=== PATIENT | female | born 1965 | race Caucasian/White ===

== ENCOUNTER → 2016-08-15 | Outpatient (CLI) | payer BC ==
--- NOTE | 2016-08-15 13:34 | REPMRS ---
Patient History The patient states she has not had a clinical breast exam in over a year. No known family history of cancer. Digital Woman Screen Mammo: August 15, 2016 - Exam #: [id number] Bilateral CC and MLO view(s) were taken. Technologist: Vesna Melissa Technologist Prior study comparison: April 12, 2015, digital woman screen mammo performed at [facility]. FINDINGS: There are scattered fibroglandular densities. There has been no change in the appearance of the mammogram from the prior studies. There is a mild amount of residual fibroglandular tissue which is fairly symmetric. There is no interval development of dominant mass, architectural distortion, or clustered microcalcification suggestive of malignancy. ASSESSMENT: BI-RADS/ACR category 1 mammogram. Negative. Recommendation Routine screening mammogram in 1 year (for women over age 40). This mammogram was interpreted with the aid of an FDA-approved computer-aided dectection system. Electronically Signed By: Guillaume Callejas MD 08/15/16 3435
== END ==
LOC: M WHC 12:59
PROVIDERS: ATTEND Nurse Practitioner Family
DX: Z12.39 Encounter for other screening for malignant neoplasm of breast (principal)

== ENCOUNTER → 2016-08-25 | Outpatient (CLI) | payer BC ==
[2016-08-25 11:14] LABS: ALBUMIN 3.9 GM/DL (3.2-5.2); ALBUMIN/GLOBULIN RATIO 1.34 (1.00-1.93); ALKALINE PHOSPHATASE 69 U/L (45-117); ALT/SGPT 25 U/L (12-78); ANION GAP 5 MEQ/L (8-16); AST/SGOT 16 U/L (15-37); BILIRUBIN,TOTAL 0.4 MG/DL (0.2-1.0); BLOOD UREA NITROGEN 11 MG/DL (7-18); CARBON DIOXIDE LEVEL 34 MEQ/L (21-32); CHLORIDE LEVEL 104 MEQ/L (98-107); CREATININE FOR GFR 0.65 MG/DL (0.55-1.02); FREE T4 1.23 NG/DL (0.76-1.46); GLOMERULAR FILTRATION RATE > 60.0 (>51); GLUCOSE, FASTING 109 MG/DL (70-105); POTASSIUM SERUM 3.8 MEQ/L (3.5-5.1); SODIUM LEVEL 143 MEQ/L (136-145); TOTAL PROTEIN 6.8 GM/DL (6.4-8.2)
== END ==
LOC: M LAB 10:05
PROVIDERS: ATTEND Nurse Practitioner Family
DX: I10 Essential (primary) hypertension (principal); R73.01 Impaired fasting glucose; E05.10 Thyrotoxicosis with toxic single thyroid nodule without thyrotoxic crisis or storm

== ENCOUNTER → 2017-03-04 | Outpatient (CLI) | payer BC ==
[2017-03-04 12:35] LABS: ALBUMIN 3.6 GM/DL (3.2-5.2); ALBUMIN/GLOBULIN RATIO 1.16 (1.00-1.93); ALKALINE PHOSPHATASE 66 U/L (45-117); ALT/SGPT 27 U/L (12-78); ANION GAP 9 MEQ/L (8-16); AST/SGOT 14 U/L (15-37); BILIRUBIN,TOTAL 0.4 MG/DL (0.2-1.0); BLOOD UREA NITROGEN 11 MG/DL (7-18); CARBON DIOXIDE LEVEL 31 MEQ/L (21-32); CHLORIDE LEVEL 104 MEQ/L (98-107); CHOLESTEROL LEVEL 193 MG/DL (<200); CREATININE FOR GFR 0.52 MG/DL (0.55-1.02); FREE T4 1.18 NG/DL (0.76-1.46); GLOMERULAR FILTRATION RATE > 60.0 (>51); GLUCOSE, FASTING 100 MG/DL (70-105); POTASSIUM SERUM 3.9 MEQ/L (3.5-5.1); SODIUM LEVEL 144 MEQ/L (136-145); TOTAL PROTEIN 6.7 GM/DL (6.4-8.2); TRIGLYCERIDES LEVEL 73 MG/DL (<150)
== END ==
LOC: M LAB 10:27
PROVIDERS: ATTEND Nurse Practitioner Family
DX: E05.10 Thyrotoxicosis with toxic single thyroid nodule without thyrotoxic crisis or storm (principal)

== ENCOUNTER → 2017-09-02 | Outpatient (CLI) | payer BC ==
[2017-09-02 07:21] LABS: ESTIMATED AVERAGE GLUCOSE 123 MG/DL (60-110); HEMOGLOBIN A1c 5.9 %
[2017-09-02 07:35] LABS: ALBUMIN 3.7 GM/DL (3.2-5.2); ALBUMIN/GLOBULIN RATIO 1.28 (1.00-1.93); ALKALINE PHOSPHATASE 70 U/L (45-117); ALT/SGPT 29 U/L (12-78); ANION GAP 5 MEQ/L (8-16); AST/SGOT 13 U/L (7-37); BILIRUBIN,TOTAL 0.4 MG/DL (0.2-1.0); BLOOD UREA NITROGEN 14 MG/DL (7-18); CALCIUM LEVEL 8.7 MG/DL (8.5-10.1); CARBON DIOXIDE LEVEL 33 MEQ/L (21-32); CHLORIDE LEVEL 104 MEQ/L (98-107); CREATININE FOR GFR 0.64 MG/DL (0.55-1.30); FREE T3 3.1 PG/ML (2.2-4.0); FREE T4 1.14 NG/DL (0.76-1.46); GLOMERULAR FILTRATION RATE > 60.0 (>51); GLUCOSE, FASTING 112 MG/DL (70-100); POTASSIUM SERUM 3.9 MEQ/L (3.5-5.1); SODIUM LEVEL 142 MEQ/L (136-145); THYROID STIMULATING HORMONE 0.766 uIU/ML (0.358-3.740); TOTAL PROTEIN 6.6 GM/DL (6.4-8.2)
== END ==
LOC: M LAB 06:35
DX: R73.01 Impaired fasting glucose (principal)

== ENCOUNTER 2018-03-09 06:09 | Day surgery (SDC) | payer BC ==
[2018-03-09 06:37] LABS: HEMATOCRIT 41.7 % (36.0-47.0); HEMOGLOBIN 14.7 g/dl (12.0-15.5); MEAN CORPUSCULAR HEMOGLOBIN 32.2 pg (27.0-33.0); MEAN CORPUSCULAR HGB CONC 35.3 g/dl (32.0-36.5); MEAN CORPUSCULAR VOLUME 91.4 fl (80.0-96.0); PLATELET COUNT, AUTOMATED 248 10^3/uL (150-450); RED BLOOD COUNT 4.56 10^6/uL (4.00-5.40); RED CELL DISTRIBUTION WIDTH 11.9 % (11.5-14.5); WHITE BLOOD COUNT 8.8 10^3/uL (4.0-10.0)
[2018-03-09] MEDS: LR 1,000 ML IV ×4 (07:08→20:04)
[2018-03-09] MEDS: PHENAZOPYRIDINE 100 MG TAB PO (07:39)
[2018-03-09] MEDS ORDERED: fentaNYL 250 MCG/5 ML INJECTION (J3010) As Ordered (07:59)
[2018-03-09] MEDS ORDERED: PROPOFOL 200 MG/20 ML VIAL As Ordered (07:59)
[2018-03-09] MEDS ORDERED: MIDAZOLAM INJ 2 MG/2 ML VIAL (J2250) As Ordered (07:59)
[2018-03-09] MEDS ORDERED: dexameTHASONE 4 MG/ML 1ML VIAL (J1100) As Ordered (07:59)
[2018-03-09] MEDS ORDERED: LIDOCAINE 2% INJ 100 MG/5 ML SDV (FOR ANES.) As Ordered (07:59)
[2018-03-09] MEDS ORDERED: ROCURONIUM BROMIDE 50 MG/5 ML VIAL As Ordered ×2 (07:59→09:26)
[2018-03-09] MEDS ORDERED: LR 1,000 ML IV (08:00)
[2018-03-09] MEDS ORDERED: PHENYLephrine HCL 500 MCG/5 ML (100MCG/ML) SYRINGE (J2370) As Ordered ×2 (08:06→10:02)
[2018-03-09] MEDS ORDERED: GLYCOPYRROLATE INJ 0.2 MG/ML 2 ML VIAL As Ordered (08:23)
[2018-03-09] MEDS ORDERED: LISINOPRIL 10 MG TAB PO (09:00)
[2018-03-09] MEDS ORDERED: buPROPion 75 MG TAB PO (09:00)
[2018-03-09] MEDS ORDERED: buPROPion **XL** TABLET 150MG (WELLBUTRIN XL) PO (09:00)
[2018-03-09] MEDS: hydroCHLOROthiazide 25 MG TAB PO (09:00)
[2018-03-09] MEDS ORDERED: HYDROmorphone HCL 2 MG/ML 1ML VIAL (J1170) As Ordered (09:03)
[2018-03-09] MEDS ORDERED: ONDANSETRON 4MG/2ML VIAL (J2405) As Ordered (09:05)
[2018-03-09] MEDS ORDERED: KETOROLAC 60 MG/2 ML VIAL (J1885) As Ordered (09:05)
[2018-03-09] MEDS ORDERED: NEOSTIGMINE 10 MG/10 ML VIAL (J2710) As Ordered (09:05)
[2018-03-09] MEDS: VASOPRESSIN INJ 20 UNITS/ML VIAL As Ordered (09:09)
[2018-03-09] MEDS ORDERED: MORPHINE 1MG/ML IN 0.9% NACL 100ML IV BAG As Ordered (11:13)
[2018-03-09] MEDS ORDERED: PERCOCET 5MG/325MG TAB PO (11:15)
[2018-03-09] MEDS ORDERED: fentaNYL 100 MCG/2 ML INJECTION (J3010) IV (11:15)
[2018-03-09] MEDS ORDERED: ONDANSETRON 4MG/2ML VIAL (J2405) IV (11:15)
[2018-03-09] MEDS ORDERED: IBUPROFEN 600 MG TAB PO (11:15)
[2018-03-09] MEDS ORDERED: HYDROMORPHONE HCL 0.5 MG/ 0.5 ML SYRINGE (J1170 PER 1) IV (11:15)
[2018-03-09] MEDS: MORPHINE 1MG/ML IN 0.9% NACL 100ML IV BAG IV (11:20)
[2018-03-09] MEDS ORDERED: diphenhydrAMINE INJ 50MG/ML VIAL (J1200) IV (11:30)
[2018-03-09] MEDS ORDERED: NALBUPHINE HCL 10 MG/ML AMP (J2300) IV (11:30)
[2018-03-09] MEDS ORDERED: EPIDURAL/PCA KEYS XX (11:30)
[2018-03-09] MEDS ORDERED: NALOXONE INJ 0.4 MG/1 ML VIAL (J2310) IV (11:30)
[2018-03-09] MEDS: OMEPRAZOLE 20 MG CAP PO (15:56)
[2018-03-09] MEDS: IBUPROFEN 600 MG TAB PO (16:26)
[2018-03-09] MEDS: LISINOPRIL 20 MG TAB PO (20:13)
[2018-03-09] MEDS: buPROPion **SR TABLET** (ZYBAN) 150MG PO (20:14)
[2018-03-10] MEDS: IBUPROFEN 600 MG TAB PO ×2 (00:13→06:28)
[2018-03-10] MEDS ORDERED: NORCO, ANEXSIA 5/325MG TABLET (HYDROcodone/ACETAMINOPHEN) PO (06:00)
[2018-03-10 08:22] LABS: HEMATOCRIT 33.2 % (36.0-47.0); MEAN CORPUSCULAR HGB CONC 35.5 g/dl (32.0-36.5); MEAN CORPUSCULAR VOLUME 92.7 fl (80.0-96.0); PLATELET COUNT, AUTOMATED 206 10^3/uL (150-450); RED BLOOD COUNT 3.58 10^6/uL (4.00-5.40); RED CELL DISTRIBUTION WIDTH 11.9 % (11.5-14.5)
[2018-03-10 08:24] LABS: HEMOGLOBIN 11.8 g/dl (12.0-15.5)
[2018-03-10] MEDS: OMEPRAZOLE 20 MG CAP PO (09:31)
[2018-03-10] MEDS: buPROPion **SR TABLET** (ZYBAN) 150MG PO (09:31)
[2018-03-10] MEDS: hydroCHLOROthiazide 25 MG TAB PO (09:31)
== END 2018-03-10 11:05 | disposition home or self-care (01) ==
LOC: M SDC 06:09 → M PED 11:56
DX: N81.4 Uterovaginal prolapse, unspecified (principal); I10 Essential (primary) hypertension; F41.9 Anxiety disorder, unspecified; K21.9 Gastro-esophageal reflux disease without esophagitis; Z79.899 Other long term (current) drug therapy; Z72.0 Tobacco use
CPT/HCPCS: 58571

== ENCOUNTER → 2018-03-16 | Outpatient (REF) | payer BC ==
[2018-03-16 18:56] LABS: APPEARANCE, URINE HAZY (CLEAR); BACTERIA, URINE AUTO NEGATIVE (NEGATIVE); BILIRUBIN, URINE AUTO NEGATIVE (NEGATIVE); BLOOD, URINE BLOOD 3+ (NEGATIVE); COLOR, URINE YELLOW (YELLOW); GLUCOSE, URINE (UA) AUTO NEGATIVE (NEGATIVE); KETONE, URINE AUTO NEGATIVE (NEGATIVE); LEUKOCYTE ESTERASE, URINE AUTO NEGATIVE (NEGATIVE); MUCUS, URINE SMALL (NEGATIVE); NITRITE, URINE AUTO NEGATIVE (NEGATIVE); PROTEIN, URINE AUTO NEGATIVE (NEGATIVE); RBC, URINE AUTO TNTC /HPF (0-3); SPECIFIC GRAVITY URINE AUTO 1.018 (1.002-1.035); SQUAMOUS EPITHELIAL CELL UR AU 1 /HPF (0-6); UROBILINOGEN, URINE AUTO 0.2 mg/dL (0.0-2.0); WBC, URINE AUTO 2 /HPF (0-3)
== END ==
LOC: M LAB REF 16:53
DX: N39.0 Urinary tract infection, site not specified (principal)
CPT/HCPCS: 81001

== ENCOUNTER → 2018-09-10 | Outpatient (CLI) | payer BC ==
[~2018-09-10] MED LIST: BUPR1TAB53 PO; HYDR25TAB PO; IBUP-1022 PO; LISI-538 PO; NORCOTAB PO; PRIL20TA2 PO
[2018-09-10 17:17] LABS: BASO % 0.4 % (0.0-1.0); EOS # 0.1 10^3/uL (0.0-0.50); EOS % 1.8 % (0.0-3.0); HEMATOCRIT 38.8 % (36.0-47.0); HEMOGLOBIN 13.3 g/dl (12.0-15.5); LYMPH # 2.8 10^3/uL (1.5-4.5); LYMPH % 34.9 % (24.0-44.0); MEAN CORPUSCULAR HEMOGLOBIN 31.6 pg (27.0-33.0); MEAN CORPUSCULAR HGB CONC 34.3 g/dl (32.0-36.5); MEAN CORPUSCULAR VOLUME 92.2 fl (80.0-96.0); MONO # 0.6 10^3/uL (0.0-0.8); MONO % 7.8 % (0.0-5.0); NEUTROPHILS # 4.3 10^3/uL (1.8-7.7); NEUTROPHILS % 54.7 % (36.0-66.0); PLATELET COUNT, AUTOMATED 276 10^3/uL (150-450); RED BLOOD COUNT 4.21 10^6/uL (4.00-5.40); WHITE BLOOD COUNT 7.9 10^3/uL (4.0-10.0)
[2018-09-10 17:34] LABS: ALBUMIN 3.9 GM/DL (3.2-5.2); ALT/SGPT 32 U/L (12-78); BILIRUBIN,TOTAL 0.3 MG/DL (0.2-1.0); BLOOD UREA NITROGEN 15 MG/DL (7-18); CALCIUM LEVEL 8.8 MG/DL (8.5-10.1); CARBON DIOXIDE LEVEL 31 MEQ/L (21-32); CHLORIDE LEVEL 101 MEQ/L (98-107); CREATININE FOR GFR 0.57 MG/DL (0.55-1.30); FREE T3 3.2 PG/ML (2.2-4.0); GLOMERULAR FILTRATION RATE > 60.0 (>51); GLUCOSE, FASTING 105 MG/DL (70-100); POTASSIUM SERUM 3.7 MEQ/L (3.5-5.1); SODIUM LEVEL 137 MEQ/L (136-145); THYROID STIMULATING HORMONE 0.404 uIU/ML (0.358-3.740); TOTAL PROTEIN 6.8 GM/DL (6.4-8.2)
[2018-09-10 17:59] LABS: HEMOGLOBIN A1c 6.4 %
== END ==
LOC: M LAB 16:14
PROVIDERS: ATTEND Nurse Practitioner Family
DX: I10 Essential (primary) hypertension (principal); R73.01 Impaired fasting glucose; E05.10 Thyrotoxicosis with toxic single thyroid nodule without thyrotoxic crisis or storm

== ENCOUNTER → 2019-02-18 | Outpatient (CLI) | payer BC ==
[~2019-02-18] MED LIST changes: +HYDR-3715 PO; -NORCOTAB PO
--- NOTE | 2019-02-18 12:42 | REPMRS ---
Patient History The patient states she has not had a clinical breast exam in over a year. Patient is postmenopausal. No Hormone Replacement Therapy Digital Woman Screen Mammo: February 18, 2019 - Exam #: [id number] Bilateral CC and MLO view(s) were taken. Technologist: Rossi Bell, Technologist Prior study comparison: August 15, 2016, digital woman screen mammo performed at [facility]. April 12, 2015, digital woman screen mammo performed at [facility] [employer] [facility]. FINDINGS: There are scattered fibroglandular densities. There has been no change in the appearance of the mammogram from the prior studies. There is a mild amount of scattered fibroglandular density which is fairly symmetric. There is no interval development of dominant mass, architectural distortion, or grouped microcalcification suggestive of malignancy. 3-D tomosynthesis shows no additional findings. Assessment: BI-RADS/ACR category 1 mammogram. Negative Mammogram. Recommendation Routine screening mammogram of both breasts in 1 year (for women over age 40). This patient's Lifetime Breast Cancer Risk is estimated at 7.4 %. This mammogram was interpreted with the aid of an FDA-approved computer-aided dectection system. Electronically Signed By: Alfredo Patel MD 02/18/19 2270
== END ==
LOC: M WHC 11:58
PROVIDERS: ATTEND Nurse Practitioner Family
DX: Z12.31 Encounter for screening mammogram for malignant neoplasm of breast (principal); Z78.0 Asymptomatic menopausal state

== ENCOUNTER → 2019-05-06 | Outpatient (CLI) | payer BC ==
[2019-05-06 07:13] LABS: BASO % 0.5 % (0.0-1.0); EOS # 0.2 10^3/uL (0.0-0.5); EOS % 3.4 % (0.0-3.0); HEMATOCRIT 43.1 % (36.0-47.0); HEMOGLOBIN 14.7 g/dl (12.0-15.5); LYMPH # 1.9 10^3/uL (1.5-5.0); LYMPH % 31.3 % (24.0-44.0); MEAN CORPUSCULAR HEMOGLOBIN 32.2 pg (27.0-33.0); MEAN CORPUSCULAR HGB CONC 34.1 g/dl (32.0-36.5); MEAN CORPUSCULAR VOLUME 94.3 fl (80.0-96.0); MONO # 0.6 10^3/uL (0.0-0.8); MONO % 9.6 % (0.0-5.0); NEUTROPHILS # 3.4 10^3/uL (1.5-8.5); PLATELET COUNT, AUTOMATED 271 10^3/uL (150-450); RED BLOOD COUNT 4.57 10^6/uL (4.00-5.40); WHITE BLOOD COUNT 6.2 10^3/uL (4.0-10.0)
[2019-05-06 08:03] LABS: ALBUMIN 3.6 GM/DL (3.2-5.2); ALT/SGPT 42 U/L (12-78); BILIRUBIN,TOTAL 0.3 MG/DL (0.2-1.0); BLOOD UREA NITROGEN 13 MG/DL (7-18); CALCIUM LEVEL 8.9 MG/DL (8.5-10.1); CARBON DIOXIDE LEVEL 32 MEQ/L (21-32); CHLORIDE LEVEL 104 MEQ/L (98-107); CHOLESTEROL LEVEL 189 MG/DL (<200); CHOLESTEROL RISK RATIO 3.375 (<5); CREATININE FOR GFR 0.74 MG/DL (0.55-1.30); FREE T4 1.18 NG/DL (0.76-1.46); GLOMERULAR FILTRATION RATE > 60.0 (>51); GLUCOSE, FASTING 136 MG/DL (70-100); HDL CHOLESTEROL 56 MG/DL (>40); LDL CHOLESTEROL 120 MG/DL (<100); NON-HDL-C 133 MG/DL; SODIUM LEVEL 141 MEQ/L (136-145); THYROID STIMULATING HORMONE 0.917 uIU/ML (0.358-3.740); TOTAL PROTEIN 6.9 GM/DL (6.4-8.2); TRIGLYCERIDES LEVEL 65 MG/DL (<150)
[2019-05-06 09:29] LABS: TOTAL 25(OH) VITAMIN D 34.7 NG/ML (30.0-100.0)
== END ==
LOC: M LAB 06:49
PROVIDERS: ATTEND Physician Assistant Medical
DX: R53.83 Other fatigue (principal); I10 Essential (primary) hypertension; Z13.220 Encounter for screening for lipoid disorders

== ENCOUNTER → 2019-09-12 | Outpatient (REF) | payer BC ==
[2019-09-12 13:45] LABS: APPEARANCE, URINE HAZY (CLEAR); BACTERIA, URINE AUTO 1+ (NEGATIVE); BILIRUBIN, URINE AUTO NEGATIVE (NEGATIVE); BLOOD, URINE BLOOD NEGATIVE (NEGATIVE); COLOR, URINE YELLOW (YELLOW); GLUCOSE, URINE (UA) AUTO NEGATIVE (NEGATIVE); KETONE, URINE AUTO NEGATIVE (NEGATIVE); LEUKOCYTE ESTERASE, URINE AUTO TRACE (NEGATIVE); MUCUS, URINE SMALL (NEGATIVE); NITRITE, URINE AUTO NEGATIVE (NEGATIVE); PROTEIN, URINE AUTO NEGATIVE (NEGATIVE); RBC, URINE AUTO 3 /HPF (0-3); SPECIFIC GRAVITY URINE AUTO 1.017 (1.002-1.035); SQUAMOUS EPITHELIAL CELL UR AU 4 /HPF (0-6); WBC, URINE AUTO 15 /HPF (0-3)
== END ==
LOC: M LAB REF 13:26
PROVIDERS: ATTEND Physician Assistant
DX: N39.0 Urinary tract infection, site not specified (principal)

== ENCOUNTER → 2020-03-28 | Outpatient (CLI) | payer BC ==
[2020-03-28 06:57] LABS: BASO % 0.4 % (0.0-1.0); EOS # 0.2 10^3/uL (0.0-0.5); EOS % 2.3 % (0.0-3.0); HEMATOCRIT 42.4 % (36.0-47.0); HEMOGLOBIN 14.6 g/dl (12.0-15.5); LYMPH # 2.5 10^3/uL (1.5-5.0); LYMPH % 36.2 % (24.0-44.0); MEAN CORPUSCULAR HEMOGLOBIN 31.8 pg (27.0-33.0); MEAN CORPUSCULAR HGB CONC 34.4 g/dl (32.0-36.5); MEAN CORPUSCULAR VOLUME 92.4 fl (80.0-96.0); MONO # 0.7 10^3/uL (0.0-0.8); MONO % 9.4 % (0.0-5.0); NEUTROPHILS # 3.5 10^3/uL (1.5-8.5); NEUTROPHILS % 51.4 % (36.0-66.0); PLATELET COUNT, AUTOMATED 244 10^3/uL (150-450); RED BLOOD COUNT 4.59 10^6/uL (4.00-5.40); WHITE BLOOD COUNT 6.9 10^3/uL (4.0-10.0)
[2020-03-28 07:14] LABS: HEMOGLOBIN A1c 6.9 %
[2020-03-28 07:36] LABS: ALBUMIN 3.3 GM/DL (3.2-5.2); ALT/SGPT 63 U/L (12-78); BILIRUBIN,TOTAL 0.4 MG/DL (0.2-1.0); BLOOD UREA NITROGEN 17 MG/DL (7-18); CALCIUM LEVEL 8.9 MG/DL (8.5-10.1); CARBON DIOXIDE LEVEL 30 MEQ/L (21-32); CHLORIDE LEVEL 104 MEQ/L (98-107); CHOLESTEROL LEVEL 195 MG/DL (<200); CHOLESTEROL RISK RATIO 4.431 (<5); FREE T4 1.23 NG/DL (0.76-1.46); GLOMERULAR FILTRATION RATE > 60.0 (>51); GLUCOSE, FASTING 172 MG/DL (70-100); HDL CHOLESTEROL 44 MG/DL (>40); LDL CHOLESTEROL 118 MG/DL (<100); NON-HDL-C 151 MG/DL; POTASSIUM SERUM 3.9 MEQ/L (3.5-5.1); SODIUM LEVEL 140 MEQ/L (136-145); TOTAL PROTEIN 6.5 GM/DL (6.4-8.2); TRIGLYCERIDES LEVEL 164 MG/DL (<150)
== END ==
LOC: M LAB 05:59
PROVIDERS: ATTEND Physician Assistant Medical
DX: E78.2 Mixed hyperlipidemia (principal); E11.9 Type 2 diabetes mellitus without complications; I10 Essential (primary) hypertension

== ENCOUNTER → 2020-07-29 | Outpatient (CLI) | payer BC ==
[~2020-07-29] MED LIST changes: +BISO5TAB14
== END ==
LOC: M LABSMTC 08:14
PROVIDERS: ATTEND Anesthesiology
DX: Z01.812 Encounter for preprocedural laboratory examination (principal); Z20.822 Contact with and (suspected) exposure to COVID-19

== ENCOUNTER 2020-08-03 09:57 | Day surgery (SDC) | payer BC ==
[~2020-08-03] VITALS: Ht 170.2 cm; Wt 96.5 kg
[~2020-08-03 09:57] MED LIST changes: +HYDR-3490 PO; -HYDR25TAB PO; -LISI-538 PO; +LISI20TA33 PO; +MIDAZOLAM INJ 2MG/2ML VIAL (J2250 PER 1MG) As Ordered ONE; +OFLOXACIN 0.3 % (OCUFLOX) OPTH SOL 5ML OD ONE; +PHENYLEPHRINE 2.5% OPHTH SOL 2ML OD ONE; +PROPARACAINE 0.5% OPHTH SOL 15ML OD ONE; +TROPICAMIDE 1% OPHTH SOLN 2ML OD ONE; +fentaNYL 100 MCG/2 ML INJECTION (J3010) As Ordered ONE
[2020-08-03] MEDS ORDERED: BSS IRR 500ML/OMIDRIA 4ML IRR BAG (OR ONLY) As Ordered ONE (09:58)
[2020-08-03] MEDS ORDERED: DUOVISC (0.50ML VISCOAT/0.55ML PROVISC) OPHTH KIT As Ordered ONE (10:21)
[2020-08-03] MEDS ORDERED: CEFUROXIME 1MG/0.1ML INTRACAMERAL INJ As Ordered ONE (10:21)
[2020-08-03] MEDS ORDERED: POVIDONE-IODINE 5% OPHTH PREP SOL 30ML As Ordered ONE (10:22)
[2020-08-03 13:00] VITALS: BP 124/63
--- NOTE | 2020-08-04 10:36 | RO ---
OPERATIVE NOTE DATE OF OPERATION: 08/03/2020 PREOPERATIVE DIAGNOSIS: 1. Visually significant nuclear sclerotic cataract, right eye. POSTOPERATIVE DIAGNOSIS: 1. Visually significant nuclear sclerotic cataract, right eye. PROCEDURE: 1. Cataract extraction with use of phacoemulsification, and placement of intraocular lens, AU00T0, 13.5 D, right eye. SURGEON: Ricardo Simmons DO ANESTHESIA: Local (Omidria with MAC) COMPLICATIONS: None POSTOPERATIVE CONDITION: Stable INDICATIONS FOR SURGERY: 1. Blurred vision affecting patient's activities of daily living. DESCRIPTION OF PROCEDURE: The patient was seen in the preoperative area and properly identified. The correct operative eye was identified and marked. The patient received topical anesthetic, antibiotics, and topical dilating drops. The patient was then transferred to the operating room. The correct side was re-identified and a time-out was performed. The eye was prepped and draped in a sterile fashion. The eyelids were isolated with Tegaderm tape and the lids were held open with an adjustable speculum. A 1.0mm paracentesis incision was made. Omidria was then injected into the anterior chamber. Viscoelastic was then injected into the anterior chamber through the paracentesis. Using a 2.4mm sharp-tipped keratome, the anterior chamber was entered via a temporal clear cornea incision. A continuous curvilinear capsulorrhexis was created with Utrata forceps. Hydrodissection was performed with BSS on a blunt cannula until the nucleus was able to rotate freely. The crystalline lens was phacoemulsified and aspirated. Irrigation/aspiration was used to remove the cortical material Cohesive viscoelastic was placed into the capsular bag to deepen it. The implant was placed into the capsular bag and allowed to unfold. Placement was confirmed by visualizing the anterior capsulorrhexis. Irrigation/aspiration was used to remove the viscoelastic. The clear corneal incision was hydrated with BSS on a blunt cannula. The lens was well positioned. Intracameral antibiotic was injected into the anterior chamber. The incisions were then tested for leaks and found to be negative. The eye was then palpated for appropriate pressure and adjusted accordingly with BSS. The eyelid speculum was then carefully removed. A shield was placed over the eye. The patient tolerated the procedure well and was discharge to the recovery unit in a stable condition.
== END 2020-08-03 13:18 | disposition home or self-care (01) ==
LOC: M SDC 09:57
PROVIDERS: ATTEND Ophthalmology
DX: H25.11 Age-related nuclear cataract, right eye (principal); I10 Essential (primary) hypertension; F17.210 Nicotine dependence, cigarettes, uncomplicated; F41.9 Anxiety disorder, unspecified; K21.9 Gastro-esophageal reflux disease without esophagitis; Z79.899 Other long term (current) drug therapy; Z90.710 Acquired absence of both cervix and uterus
CPT/HCPCS: 66984; J1097; J2250; J3010

== ENCOUNTER → 2020-08-05 | Outpatient (CLI) | payer BC ==
[~2020-08-05] MED LIST changes: -MIDAZOLAM INJ 2MG/2ML VIAL (J2250 PER 1MG) As Ordered ONE; -OFLOXACIN 0.3 % (OCUFLOX) OPTH SOL 5ML OD ONE; -PHENYLEPHRINE 2.5% OPHTH SOL 2ML OD ONE; -PROPARACAINE 0.5% OPHTH SOL 15ML OD ONE; -TROPICAMIDE 1% OPHTH SOLN 2ML OD ONE; -fentaNYL 100 MCG/2 ML INJECTION (J3010) As Ordered ONE
== END ==
LOC: M LABSMTC 08:04
PROVIDERS: ATTEND Anesthesiology
DX: Z01.812 Encounter for preprocedural laboratory examination (principal); Z20.822 Contact with and (suspected) exposure to COVID-19

== ENCOUNTER 2020-08-10 07:08 | Day surgery (SDC) | payer BC ==
[~2020-08-10] VITALS: Ht 170.2 cm; Wt 96.2 kg
[~2020-08-10 07:08] MED LIST changes: +DUOVISC (0.50ML VISCOAT/0.55ML PROVISC) OPHTH KIT As Ordered ONE; +OFLOXACIN 0.3 % (OCUFLOX) OPTH SOL 5ML OS ONE; +PHENYLEPHRINE 2.5% OPHTH SOL 2ML OS ONE; +POVIDONE-IODINE 5% OPHTH PREP SOL 30ML As Ordered ONE; +PROPARACAINE 0.5% OPHTH SOL 15ML OS ONE; +TROPICAMIDE 1% OPHTH SOLN 2ML OS ONE
[2020-08-10] MEDS ORDERED: fentaNYL 100 MCG/2 ML INJECTION (J3010) As Ordered ONE (07:14)
[2020-08-10] MEDS ORDERED: MIDAZOLAM INJ 2MG/2ML VIAL (J2250 PER 1MG) As Ordered ONE (07:14)
--- OUTSIDE RECORDS SUMMARY | 2020-08-10 07:15 | CCD ---
Author Author Johny Mobley MD [facility] Organization Johny Mobley MD [facility] Address [phone] [address] Phone Care Team Providers Care Pattern Filer Name Role Phone Basilio Fay PP [phone] Troy GUEVARA, Ricardo Unavailable [phone] Reason for Referral No Reason for Referral Recorded Problems Includes: Active, inactive, and resolved Problems All Visits Onset Date - Time Resolved Date - Time Provider Co ndition Status Cataract Senile Posterior Subcapsular Polar 05/16/2020 - 12:00AM Ricardo Simmons DO Active Cataract Senile Nuclear 05/16/2020 - 12:00AM Ricardo gunn DO Active Dry Eye Syndrome 05/16/2020 - 12:00AM Ricardo hazel DO Active Vitreous Disorders Degeneration 05/16/2020 - 12:00AM Concepcion Simmons DO Active Plan of Treatment Future Appointments Date Time Location Provider POST OP VISIT WITH PRE-OP 08/04/2020 1:10PM Johny hi MD [facility] Ricardo Simmons DO Extracapsular cataract removal w/IOL implant 08/10/2020 9:4 0AM [facility] Ricardo Simmons DO 1 Week Post OP 08/18/2020 1:10PM Johny Mobley MD [facility] Concepcion Simmons DO Assessments Includes: Assessments for all patient encounters Findings Encounter Date Nuclear senile cataract 1 WK PREOP FOR SURGERY with Ricardo Simmons DO 07/26/2020 Posterior subcapsular polar senile cataract 1 WK PREOP FOR SURGERY with Ricardo Simmons DO 07/26/2020 Dry eye syndrome NEW PATIENT WITH REFERRAL with Ricardo gunn DO 05/16/2020 Nuclear senile cataract NEW PATIENT WITH REFERRAL with Mian Simmons DO 05/16/2020 Posterior subcapsular polar senile cataract NEW PATIEN T WITH REFERRAL with Ricardo Simmons DO 05/16/2020 Vitreous degeneration NEW PATIENT WITH REFERRAL with Ricardo Simmons DO 05/16/2020 Instructions Instructions not supported for this document typeNo Instructions Recorded Medical Equipment - Implanted Devices Includes: Current and historical DevicesNo Medical Equipment Recorded Medications Includes: Current and historical Medications Current Medications (continue as prescribed) Moxifloxacin HCl 0.5% Ophthalmic Solution 07/26/2020 Provider: Ricardo Simmons DO Diagnosis: Posterior subcapsula r polar age-related cataract, right eye Three days prior to surgery start one drop four times a day in the right eye BromSite 0.075% Ophthalmic Solution 07/26/2020 Prov ider: Ricardo Simmons DO Diagnosis: Posterior subcapsula r polar age-related cataract, right eye Three days prior to surgery start one dr op two times a day in the right eye, RUN CARD. SEE PHARM NOTES Inveltys 1% Ophthalmic Suspension 07/26/2020 Provid er: Ricardo Simmons DO Diagnosis: Posterior subcapsula r polar age-related cataract, right eye Day of surgery remove patch start one dr op two times a day in the right eye, RUN CARD. SEE PHARM NOTES Lisinopril 20 MG Oral Tablet 05/16/2020 Provider: Diagnosis: buPROPion HCl ER (XL) 150 MG Oral Tablet Extended Release 24 Hour 05/16/2020 Provider: Diagnosis: Bisoprolol Fumarate 5 MG Oral Tablet 05/16/2020 Pro vider: Diagnosis: hydroCHLOROthiazide 25 MG Oral Tablet 05/16/2020 Pr ovider: Diagnosis: Omeprazole 20 MG Oral Tablet Delayed Release 05/16/2020 Provider: Diagnosis: Past Medications on file buPROPion HCl ER (SR) 150 MG Oral Tablet Extended Rele ase 12 Hour 05/16/2020 - 05/16/2020 Provider: Diagnosis: Medications Administered Includes: Administered Medications in patient's chartNo Administered Medications Recorded Vital Signs Includes: Vital Signs from 08/04/2019 through 08/04/2020No Vital Signs Recorded For Specified Dates Results Includes: Results from 08/04/2019 through 08/04/2020No Results Recorded For Specified Dates History of Present Illness History of Present Illness not supported for this document typeNo History of Present Illness Recorded Social History Description Last Updated Not using drugs 07/26/2020 Tobacco use 05/16/2020 Current smoker 05/16/2020 Alcohol consumption 12 pack weekly 05/16/2020 Smoking status : Current everyday smoker 05/16/2020 Procedures and Surgical History Includes: Procedures from 08/04/2019 through 08/04/2020 Procedures Code Diagnosis Performing Provider Service Location Service Date Intermediate Eye Exam Established Patient (Signi/Sep Eval. & Man.) 13413 Posterior subcapsular polar age-related cataract, right eye Ricardo Hennessy MD [facility] 07/26/2020 Ophthalmic biometry - IOL Master with IOL calculation (Right Side) 94243 Posterior subcapsular polar age-related cataract, right eye Ricardo Hennessy MD [facility] 07/26/2020 Medical Eye Exam [id number] Age-related nuclear cataract, left eye, Posterior subcapsular polar age-related cataract, right eye, Dry eye syndrome of bilateral lacrimal glands, Vitreous degeneration, bilateral Ricardo Metcalf MD [facility] 05/16/2020 Surgical History Last Updated Surgical / procedural history Partial Hysterectomy 20 18 05/16/2020 Medical History Includes: Medical History in patient's chart Description Last Updated No recent change in medical history 07/26/2020 Reported medical history Anxiety, Reflux 05/16/2020 History of hypertension 05/16/2020 Currently wearing eyeglasses 05/16/2020 Family History Includes: Family History in patient's chart Description Last Updated Family medical history was unknown 07/26/2020 Review of Systems Review of Systems not supported for this document typeNo Review of Systems Recorded Mental Status Mental Status not supported for this document typeNo Mental Status Recorded Functional Status Functional Status not supported for this document typeNo Functional Status Recorded Physical Exam Physical Exam not supported for this document typeNo Physical Exam Recorded Immunizations Includes: Immunizations in patient's chartNo Immunizations Recorded Allergies Includes: Active, inactive, and resolved AllergiesNo Known Allergies Encounters Includes: Encounters from 08/04/2019 through 08/04/2020 Encounter Provider Location Date Check-In Time Check-Out Time D iagnosis Extracapsular cataract removal w/IOL implant Ricardo Rodriguez in [facility] 08/03/2020 7:04AM 7:04AM 1 WK PREOP FOR SURGERY Ricardo Hennessy MD [facility] 07/26/2020 1:58PM 3:08PM Cataract Senile Posterior Shafer bcapsular Polar, Cataract Senile Nuclear NEW PATIENT WITH REFERRAL Ric[facility] 05/16/2020 12:46PM 1:51PM Dry Eye Syndrome, Ca taract Senile Posterior Subcapsular Polar, Cataract Senile Nuclear, Vitreous Disorders Degeneration Insurance Includes: Active Insurance Policies Plan Name Member ID Group # Subscriber Relationship Effective Da shweta 1 - [employer]/BS [id number] Elizabeth Mcdowell Self Advance Directives Includes: Current Advance DirectivesNo Advance Directives Recorded Health Concerns Includes: Active Health ConcernsNo Active Health Concerns Recorded Goals Includes: Active GoalsNo Active Goals Recorded Interventions Includes: Interventions for active GoalsNo Interventions Recorded Evaluations & Outcomes Includes: Evaluations & Outcomes for active GoalsNo Outcomes Recorded
--- OUTSIDE RECORDS SUMMARY | 2020-08-10 07:15 | CCD ---
Author Author Johny Mobley MD [facility] Organization Johny Mobley MD [facility] Address [address] [address] Phone Care Team Providers Care Clinical Data Abstractor Name Role Phone Basilio Fay PP [phone] Troy GUEVARA, Ricardo Unavailable [phone] Reason for Referral No Reason for Referral [...] Concepcion Simmons DO Active Plan of Treatment Pending Tests Order Diagnosis Results Due Ordering Provi jesus manuel Testing Ordered - AScan A-Scan IOL Master Age-related nucl ear cataract, left eye 07/15/20 Ricardo Simmons DO Assessments Includes: Assessments for all patient encounters Findings Encounter Date Dry eye syndrome NEW PATIENT WITH REFERRAL [...] historical Medications Current Medications (continue as prescribed) Lisinopril 20 MG Oral Tablet 05/16/2020 Provider: [...] Recorded Vital Signs Includes: Vital Signs from 05/16/2019 through 05/16/2020No Vital Signs Recorded For Specified Dates Results Includes: Results from 05/16/2019 through 05/16/2020No Results Recorded For Specified Dates History of Present Illness History of Present Illness not supported for this document typeNo History of Present Illness Recorded Social History Description Last Updated Tobacco use 05/16/2020 Current smoker 05/16/2020 Not using drugs 05/16/2020 Alcohol consumption 12 pack weekly 05/16/2020 Smoking status : Current everyday smoker 05/16/2020 Procedures and Surgical History Includes: Procedures from 05/16/2019 through 05/16/2020 Procedures Code Diagnosis Performing Provider Service Location Service Date Medical Eye Exam 57019 CATARACT SENILE NUCL EAR, CATARACT SENILE POSTERIOR SUBCAPSULAR POLAR, DRY EYE SYNDROME, VITREOUS DISORDERS DEGENERATION Ricardo Simmons DO 05/16/2020 Surgical History Last Updated Surgical / procedural history Partial Hysterectomy 20 18 05/16/2020 Medical History Includes: Medical History in patient's chart Description Last Updated Reported medical history Anxiety, Reflux 05/16/2020 History of hypertension 05/16/2020 Currently wearing eyeglasses 05/16/2020 Family History Includes: Family History in patient's chart Description Last Updated Family medical history was unknown 05/16/2020 Review of Systems Review of Systems not supported for this document typeNo Review of Systems Recorded Mental Status Mental Status not supported for this document type Description Oriented to time, place, and person Functional Status Functional Status not supported for this document typeNo Functional Status Recorded Physical Exam Physical Exam not supported for this document typeNo Physical Exam Recorded Immunizations Includes: Immunizations in patient's chartNo Immunizations Recorded Allergies Includes: Active, inactive, and resolved AllergiesNo Known Allergies Encounters Includes: Encounters from 05/16/2019 through 05/16/2020 Encounter Provider Location Date Check-In Time Check-Out Time D iagnosis NEW PATIENT WITH REFERRAL Ricardo Hennessy MD [facility] 05/16/2020 12:46PM 1:51PM Dry Eye Syndrome, Ca taract Senile Posterior Subcapsular Polar, Cataract Senile Nuclear, Vitreous Disorders Degeneration Insurance Includes: Active Insurance Policies Plan Name Member ID Group # Subscriber Relationship Effective Da shweta 1 - [employer]/BS [id number] Elizabethdixon Baronn Self Advance Directives Includes: Current Advance DirectivesNo Advance Directives Recorded Health Concerns Includes: Active Health ConcernsNo Active Health Concerns Recorded Goals Includes: Active GoalsNo Active Goals Recorded Interventions Includes: Interventions for active GoalsNo Interventions Recorded Evaluations & Outcomes Includes: Evaluations & Outcomes for active GoalsNo Outcomes Recorded
--- OUTSIDE RECORDS SUMMARY | 2020-08-10 07:15 | CCD ---
Author Author [facility] Organization [facility] Address Unknown Phone Unavailable Care Team Providers [employer] Name Role Phone Tati SIMMONS DO Unavailable [phone] Tati SIMMONS DO Unavailable [phone] Tati SIMMONSEW DO Unavailable [phone] Tati SIMMONSEW DO Unavailable [phone] Tati SIMMONSEW DO Unavailable [phone] Tati SIMMONSEW DO Unavailable [phone] Tati SIMMONSEW DO Unavailable [phone] Tati SIMMONSEW DO Unavailable [phone] Tati SIMMONSEW DO Unavailable [phone] Tati SIMMONSEW DO Unavailable [phone] Tati SIMMONSEW DO Unavailable [phone] Tati SIMMONSEW DO Unavailable [phone] Tati SIMMONSEW DO Unavailable [phone] Tati SIMMONSEW DO Unavailable [phone] Tati SIMMONS DO Unavailable [phone] Tati SIMMONS DO Unavailable [phone] Tati SIMMONS DO Unavailable [phone] Tati SIMMONS DO Unavailable [phone] Tati SIMMONS DO Unavailable [phone] Tati SIMMONS DO Unavailable [phone] Tati SIMMONS DO Unavailable [phone] Re-disclosure Warning The records that you are about to access may contain information from federally-assisted alcohol or drug abuse programs. If such information is present, then the following federally mandated warning applies: This information has been disclosed to you from records protected by federal confidentiality rules (42 CFR part 2). The federal rules prohibit you from making any further disclosure of this information unless further disclosure is expressly permitted by the written consent of the person to whom it pertains or as otherwise permitted by 42 CFR part 2. A general authorization for the release of medical or other information is NOT sufficient for this purpose. The Federal rules restrict any use of the information to criminally investigate or prosecute any alcohol or drug abuse patient.The records that you are about to access may contain highly sensitive health information, the redisclosure of which is protected by Article 27-F of the [facility] Public Health law. If you continue you may have access to information: Regarding HIV / AIDS; Provided by facilities licensed or operated by the [facility] Office of Mental Health; or Provided by the [facility] Office for People With Developmental Disabilities. If such information is present, then the following [facility] mandated warning applies: This information has been disclosed to you from confidential records which are protected by state law. State law prohibits you from making any further disclosure of this information without the specific written consent of the person to whom it pertains, or as otherwise permitted by law. Any unauthorized further disclosure in violation of state law may result in a fine or correction sentence or both. A general authorization for the release of medical or other information is NOT sufficient authorization for further disc losure. Allergies and Adverse Reactions Type Description Substance Reaction Status Data Source(s ) Allergy to substance No Known Allergies No known allergies (situation ) JOSE (Johny Woody MD [facility]) Allergy to substance No Known Allergies No known allergies (situation ) JOSE (Johny Woody MD [facility]) Family History Family Member Name Family Member Gender Family Member Status Date o f Status Description Data Source(s) Unknown Unknown Problem MEDENT (Andrew W ceci OUTPATIENT PHYSICAL THERAPIST) Encounters Encounter Providers Location Date Indications Data Source(s ) Outpatient<td ID="encounterTypeDescripti onID0">Extracapsular cataract removal w/IOL implant</td><td>Sheri Simmons DO</td><td>[facility]</td><td>08/03/2020</td><td>7:04AM</td><td>7:04AM</td><td></td> Attender: SHERI SIMMONS DO [facility] 08/03/2020 07:04:00 AM EST - 08/03/2020 07:04:00 AM EST JOSE (Johny hi MD [facility]) Outpatient<td ID="encounterTypeDescripti onID1">1 WK PREOP FOR SURGERY</td><td>Sheri Simmons DO</td><td>Johny Mobley MD [facility]</td><td>07/26/2020</td><td>1:58PM</td><td>3:08PM</td><td><content ID="encounterDiagnosisID1-0">Cataract Senile Posterior Subcapsular Polar</content>, <content ID="encounterDiagnosisID1-1">Cataract Senile Nuclear</content></td> Attender: SHERI Hennessy MD [facility] 07/26/2020 01:58:00 PM EST - 07/26/2020 03:08:00 PM EST Cataract Senile NuclearCataract Senile Posterior Subcapsular Polar JOSE (Johny Woody MD [facility]) Cataract Senile Nuclear Cataract Senile Posterior Subcapsular Po lar Outpatient<td ID="encounterTypeDescripti onID2">NEW PATIENT WITH REFERRAL</td><td>Sheri Simmons DO</td><td>Johny Mobley MD [facility]</td><td>05/16/2020</td><td>12:46PM</td><td>1:51PM</td><td><content ID="encounterDiagnosisID2-0">Dry Eye Syndrome</content>, <content ID="encounterDiagnosisID2-1">Cataract Senile Posterior Subcapsular Polar</content>, <content ID="encounterDiagnosisID2-2">Cataract Senile Nuclear</content>, <content ID="encounterDiagnosisID2-3">Vitreous Disorders Degeneration</content></td> Attender: SHERI Hennessy MD [facility] 05/16/2020 12:46:00 PM EST - 05/16/2020 01:51:00 PM ES T Vitreous Disorders DegenerationCataract Senile NuclearCataract Senile Posterior Subcapsular PolarDry Eye SyndromeVitreous Disorders DegenerationCataract Senile NuclearCataract Senile Posterior Subcapsular PolarDry Eye Syndrome JOSE (Johny Woody MD [facility]) Vitreous Disorders Degeneration Cataract Senile Nuclear Cataract Senile Posterior Subcapsular Po lar Dry Eye Syndrome Vitreous Disorders Degeneration Cataract Senile Nuclear Cataract Senile Posterior Subcapsular Po lar Dry Eye Syndrome Medications Medication Brand Name Start Date Product Form Dose Route Admi nistrative Instructions Pharmacy Instructions Status Indications Reaction Description Data Source(s) BromSite 0.075% Ophthalmic Solution BromSite 0.075% Ophthalm ic Solution 07/26/2020 12:00:00 AM EST active bromfenac 0.75 MG/ML Ophthalmic Solution [Bromsite] JOSE (Johny Woody MD [facility]) Inveltys 1% Ophthalmic Suspension Inveltys 1% Ophthalmic Jeri pension 07/26/2020 12:00:00 AM EST active loteprednol etabonate 10 MG/ML Ophthalmic Suspension [Inveltys] JOSE (Johny Woody MD [facility]) moxifloxacin 5 MG/ML Ophthalmic Solution Moxifloxacin HCl 0.5% Ophthalmic Solution Moxifloxacin HCl 0.5% Ophthalmic Solution 07/26/2020 12:00:00 AM EST active moxifloxacin 5 MG/ML Oph thalmic Solution JOSE (Johny Woody MD [facility]) Bisoprolol Fumarate 5 MG Oral Tablet Bisoprolol Fumarate 5 M G Oral Tablet 05/16/2020 12:00:00 AM EST 1 active bisoprolol fumarate 5 MG Oral Tablet JOSE (Johny Woody MD [facility]) 24 HR Bupropion Hydrochloride 150 MG Ext ended Release Oral Tablet buPROPion HCl ER (XL) 150 MG Oral Tablet Extended Release 24 Hour buPROPion HCl ER (XL) 150 MG Oral Tablet Extended Release 24 Hour 05/16/2020 12:00:00 AM EST 1 active 24 HR bupropion hydrochloride 15 0 MG Extended Release Oral Tablet JOSE (Johny Woody MD [facility]) 12 HR Bupropion Hydrochloride 150 MG Ext ended Release Oral Tablet buPROPion HCl ER (SR) 150 MG Oral Tablet Extended Release 12 Hour buPROPion HCl ER (SR) 150 MG Oral Tablet Extended Release 12 Hour 05/16/2020 12:00:00 AM EST 1 aborted 12 HR bupropion hydrochloride 15 0 MG Extended Release Oral Tablet JOSE (Johny Woody MD [facility]) Lisinopril 20 MG Oral Tablet Lisinopril 20 MG Oral Tablet 12:00:00 AM EST 1 active lisinopril 20 MG Oral Tablet JOSE (Johny Woody MD [facility]) Hydrochlorothiazide 25 MG Oral Tablet hydroCHLOROthiaz nilesh 25 MG Oral Tablet hydroCHLOROthiazide 25 MG Oral Tablet 05/16/2020 12:00:00 AM EST 1 active hydrochlorothiazide 25 MG Oral T ablet JOSE (Johny Woody MD [facility]) Omeprazole 20 MG Delayed Release Oral Ta blet Omeprazole 20 MG Oral Tablet Delayed Release Omeprazole 20 MG Oral Tablet Delayed Release 0 12:00:00 AM EST 1 active omeprazole 20 MG Delayed Release Oral Tablet JOSE (Johny Woody MD [facility]) Insurance Providers Payer name Policy type / Coverage type Policy ID Covered green party ID Covered green party's relationship to king Policy [place] Plan Information [employer] [place] 302/307 [id number] SP [id number] [employer] [place] 306/806 [id number] SP [id number] BCBS of [facility] Other 0 Self 0 BCBS of [facility] Other 0 Self 0 EXCELLUS BCBS B [id number] S UFU [id number] [employer] [id number] Self [id number] [employer] [id number] Self [id number] [employer] [id number] Self [id number] [employer] [id number] Self [id number] [employer] [id number] Self [id number] [facility] [id number] SP [id number] Problems, Conditions, and Diagnoses Code Display Name Description Problem Type Effective Dates Data Source(s) 379.21 Vitreous Disorders Degeneration Vitreous Disorders Deg eneration Problem 05/16/2020 12:00:00 AM EST JOSE (Johny Woody MD [facility]) 375.15 Dry Eye Syndrome Dry Eye Syndrome Problem 05/16/2020 12 :00:00 AM EST JOSE (Johny Woody MD [facility]) 366.16 Cataract Senile Nuclear Cataract Senile Nuclear Proble m 05/16/2020 12:00:00 AM EST JOSE (Johny Woody MD [facility]) 366.14 Cataract Senile Posterior Subcapsular Po lar Cataract Senile Posterior Subcapsular Polar Problem 05/16/2020 12:00:00 AM EST JOSE (Randall Woody MD [facility]) 379.21 Vitreous Disorders Degeneration Vitreous Disorders Deg eneration Problem 05/16/2020 12:00:00 AM EST JOSE (Johny Woody MD [facility]) 375.15 Dry Eye Syndrome Dry Eye Syndrome Problem 05/16/2020 12 :00:00 AM EST JOSE (Johny Woody MD [facility]) 366.16 Cataract Senile Nuclear Cataract Senile Nuclear Proble m 05/16/2020 12:00:00 AM EST JOSE (Johny Woody MD [facility]) 366.14 Cataract Senile Posterior Subcapsular Po lar Cataract Senile Posterior Subcapsular Polar Problem 05/16/2020 12:00:00 AM EST JOSE (Randall Woody MD [facility]) Surgeries/Procedures Procedure Description Date Indications Data Source(s) OPH BMTRY PRTL COHER INTRFRMTRY IO LENS PWR LEEANN Ophtha lmic biometry - IOL Master with IOL calculation (Right Side) 07/26/2020 12:00:00 AM EST JOSE (Johny Woody MD [facility]) Intermediate Eye Exam Established Patient (Signi/Sep E alexis. & Man.) Intermediate Eye Exam Established Patient (Signi/Sep Eval. & Man.) 07/26/2020 12:00:00 AM EST JOSE (Johny Woody MD [facility]) Surgical / procedural history Partial Hysterectomy 20 18 Surgical / procedural history Partial Hysterectomy 201705/16/2020 12:00:00 AM EST JOSE (Johny Woody MD [facility]) Medical Eye Exam Medical Eye Exam 05/16/2020 12:00:00 AM EST JOSE (Johny Woody MD [facility]) Medical Eye Exam Medical Eye Exam 05/16/2020 12:00:00 AM EST JOSE (Johny Woody MD [facility]) Results ID Date Data Source [id number] 08/05/2020 09:15:00 AM EST [facility] Name Value Range Interpretation Code Description Data Juju rce(s) Supporting Document(s) SARS coronavirus 2 RNA Not Detected [facility] [place] This lab was ordered by [facility] and reported by [facility]. ID Date Data Source [id number] 07/29/2020 08:30:00 AM EST [facility] Name Value Range Interpretation Code Description Data Juju rce(s) Supporting Document(s) SARS coronavirus 2 RNA Not Detected [facility] [place] This lab was ordered by [facility] and reported by [facility]. Procedure Social History Code Duration Value Status Description Data Source(s ) Smoking 05/16/2020 01:55:26 PM EST Smokes tobacco daily (findi ng) completed Smokes tobacco daily (finding) JOSE (Johny Woody MD [facility]) Patient Treatment Plan of Care Planned Activity Planned Date Details Description Data Source (s) Inveltys 1% Ophthalmic Suspension 07/26/2020 12:00:00 AM EST JOSE (Johny Woody MD [facility]) BromSite 0.075% Ophthalmic Solution 07/26/2020 12:00:00 AM EST [facility] (Johny Woody MD [facility]) moxifloxacin 5 MG/ML Ophthalmic Solution 07/26/2020 12:00:00 AM EST [facility] (Johny Woody MD [facility])
[2020-08-10] MEDS ORDERED: CEFUROXIME 1MG/0.1ML INTRACAMERAL INJ As Ordered ONE (07:21)
[2020-08-10] MEDS ORDERED: BSS IRR 500ML/OMIDRIA 4ML IRR BAG (OR ONLY) As Ordered ONE (08:38)
[2020-08-10 09:35] VITALS: BP 140/86
--- NOTE | 2020-08-11 09:39 | RO ---
OPERATIVE NOTE DATE OF OPERATION: 08/10/2020 PREOPERATIVE DIAGNOSIS: 1. Visually significant nuclear sclerotic cataract, left eye. POSTOPERATIVE DIAGNOSIS: 1. Visually significant nuclear sclerotic cataract, left eye. PROCEDURE: 1. Cataract extraction with use of phacoemulsification, and placement of intraocular lens, AU00T0, 15.5 D, left eye. SURGEON: Ricardo Simmons DO ANESTHESIA: Local (Omidria with MAC) COMPLICATIONS: None POSTOPERATIVE CONDITION: Stable INDICATIONS FOR SURGERY: 1. Blurred vision affecting patient's activities of daily living. DESCRIPTION OF PROCEDURE: The patient was seen in the preoperative area and properly identified. The correct operative eye was identified and marked. The patient received topical anesthetic, antibiotics, and topical dilating drops. The patient was then transferred to the operating room. The correct side was re-identified and a time-out was performed. The eye was prepped and draped in a sterile fashion. The eyelids were isolated with Tegaderm tape and the lids were held open with an adjustable speculum. A 1.0mm paracentesis incision was made. Omidria was then injected into the anterior chamber. Viscoelastic was then injected into the anterior chamber through the paracentesis. Using a 2.4mm sharp-tipped keratome, the anterior chamber was entered via a temporal clear cornea incision. A continuous curvilinear capsulorrhexis was created with Utrata forceps. Hydrodissection was performed with BSS on a blunt cannula until the nucleus was able to rotate freely. The crystalline lens was phacoemulsified and aspirated. Irrigation/aspiration was used to remove the cortical material Cohesive viscoelastic was placed into the capsular bag to deepen it. The implant was placed into the capsular bag and allowed to unfold. Placement was confirmed by visualizing the anterior capsulorrhexis. Irrigation/aspiration was used to remove the viscoelastic. The clear corneal incision was hydrated with BSS on a blunt cannula. The lens was well positioned. Intracameral antibiotic was injected into the anterior chamber. The incisions were then tested for leaks and found to be negative. The eye was then palpated for appropriate pressure and adjusted accordingly with BSS. The eyelid speculum was then carefully removed. A shield was placed over the eye. The patient tolerated the procedure well and was discharge to the recovery unit in a stable condition.
== END 2020-08-10 10:02 | disposition home or self-care (01) ==
LOC: M SDC 07:08
PROVIDERS: ATTEND Ophthalmology
DX: H25.12 Age-related nuclear cataract, left eye (principal); I10 Essential (primary) hypertension; Z79.899 Other long term (current) drug therapy; K21.9 Gastro-esophageal reflux disease without esophagitis; F41.9 Anxiety disorder, unspecified; F17.218 Nicotine dependence, cigarettes, with other nicotine-induced disorders
CPT/HCPCS: 66984; J1097; J2250; J3010

== ENCOUNTER → 2021-09-12 | Outpatient (CLI) | payer BC ==
[~2021-09-12] MED LIST changes: -DUOVISC (0.50ML VISCOAT/0.55ML PROVISC) OPHTH KIT As Ordered ONE; -OFLOXACIN 0.3 % (OCUFLOX) OPTH SOL 5ML OS ONE; -PHENYLEPHRINE 2.5% OPHTH SOL 2ML OS ONE; -POVIDONE-IODINE 5% OPHTH PREP SOL 30ML As Ordered ONE; -PROPARACAINE 0.5% OPHTH SOL 15ML OS ONE; -TROPICAMIDE 1% OPHTH SOLN 2ML OS ONE
[2021-09-12 09:22] LABS: BASO % 0.5 % (0.0-1.0); EOS # 0.2 10^3/uL (0.0-0.5); EOS % 2.9 % (0.0-3.0); HEMATOCRIT 43.1 % (36.0-47.0); HEMOGLOBIN 14.8 g/dl (12.0-15.5); LYMPH # 2.9 10^3/uL (1.5-5.0); LYMPH % 37.7 % (24.0-44.0); MEAN CORPUSCULAR HEMOGLOBIN 31.9 pg (27.0-33.0); MEAN CORPUSCULAR HGB CONC 34.3 g/dl (32.0-36.5); MEAN CORPUSCULAR VOLUME 92.9 fl (80.0-96.0); MONO # 0.8 10^3/uL (0.0-0.8); MONO % 10.6 % (2.0-8.0); NEUTROPHILS # 3.6 10^3/uL (1.5-8.5); NEUTROPHILS % 47.9 % (36.0-66.0); PLATELET COUNT, AUTOMATED 256 10^3/uL (150-450); RED BLOOD COUNT 4.64 10^6/uL (4.00-5.40); WHITE BLOOD COUNT 7.6 10^3/uL (4.0-10.0)
[2021-09-12 10:31] LABS: HEMOGLOBIN A1c 9.5 %
[2021-09-12 10:37] LABS: ALBUMIN 3.7 GM/DL (3.2-5.2); ALT/SGPT 129 U/L (12-78); BILIRUBIN,TOTAL 0.4 MG/DL (0.2-1.0); BLOOD UREA NITROGEN 16 MG/DL (7-18); CALCIUM LEVEL 9.3 MG/DL (8.5-10.1); CARBON DIOXIDE LEVEL 32 MEQ/L (21-32); CHLORIDE LEVEL 101 MEQ/L (98-107); CHOLESTEROL LEVEL 211 MG/DL (<200); CHOLESTEROL RISK RATIO 4.795 (<5); CREATININE FOR GFR 0.71 MG/DL (0.55-1.30); FREE T4 1.32 NG/DL (0.76-1.46); GLOMERULAR FILTRATION RATE > 60.0 (>51); GLUCOSE, FASTING 193 MG/DL (70-100); HDL CHOLESTEROL 44 MG/DL (>40); LDL CHOLESTEROL 131 MG/DL (<100); NON-HDL-C 167 MG/DL; POTASSIUM SERUM 3.8 MEQ/L (3.5-5.1); SODIUM LEVEL 140 MEQ/L (136-145); TOTAL PROTEIN 6.8 GM/DL (6.4-8.2); TRIGLYCERIDES LEVEL 180 MG/DL (<150)
== END ==
LOC: M LAB 07:33
PROVIDERS: ATTEND Physician Assistant Medical
DX: R53.83 Other fatigue (principal); I10 Essential (primary) hypertension; E78.2 Mixed hyperlipidemia; R73.03 Prediabetes

== ENCOUNTER 2024-05-22 09:18 | Emergency (ER) | payer BC ==
[~2024-05-22] VITALS: Ht 170.2 cm; Wt 87.0 kg
[~2024-05-22 09:18] MED LIST changes: -BISO5TAB14; +BISO5TAB14 PO
[2024-05-22] MEDS ORDERED: SEMA0.257 INJ (09:35)
[2024-05-22] MEDS: NS 2,610 ML in IV 1 EA IV ONE (10:04)
[2024-05-22] MEDS: PIPERACILLIN/TAZOBACTAM SOD 4.5 GM in DEXTROSE 5% (D5W) ADV/MINI-BAG 50 ML IV ONE (10:04)
[2024-05-22 10:07] LABS: VENOUS BASE EXCESS 0.2 (-2.0-2.0); VENOUS HCO3 25.9 MMOL/L (23.0-27.0); VENOUS O2 SATURATION 69.1 % (60.0-80.0); VENOUS PARTIAL PRESSURE CO2 45.8 mmHg (38.0-50.0); VENOUS PARTIAL PRESSURE O2 36.6 mmHg (30.0-50.0); VENOUS PH 7.371 UNITS (7.330-7.430); VENOUS STANDARD HCO3 23.8 MMOL/L; VENOUS TOTAL CO2 27.3 MMOL/L (24.0-28.0)
[2024-05-22 10:13] LABS: BASO % 0.4 % (0.0-1.0); EOS # 0.1 10^3/uL (0.0-0.5); EOS % 1.1 % (0.0-3.0); HEMOGLOBIN 15.4 g/dl (12.0-15.5); LYMPH # 2.8 10^3/uL (1.5-5.0); LYMPH % 25.3 % (24.0-44.0); MEAN CORPUSCULAR HEMOGLOBIN 31.1 pg (27.0-33.0); MEAN CORPUSCULAR HGB CONC 34.2 g/dl (32.0-36.5); MEAN CORPUSCULAR VOLUME 90.9 fl (80.0-96.0); MONO # 0.9 10^3/uL (0.0-0.8); MONO % 8.3 % (2.0-8.0); NEUTROPHILS # 7.3 10^3/uL (1.5-8.5); NEUTROPHILS % 64.5 % (36.0-66.0); PLATELET COUNT, AUTOMATED 387 10^3/uL (150-450); RED BLOOD COUNT 4.95 10^6/uL (4.00-5.40); WHITE BLOOD COUNT 11.2 10^3/uL (4.0-10.0)
[2024-05-22 10:40] LABS: CK-MB VALUE MASS < 1.0 NG/ML (<3.6)
[2024-05-22 10:41] LABS: C REACTIVE PROTEIN QUANTITATIV < 0.40 MG/DL (<1.0)
[2024-05-22 10:42] LABS: AMYLASE 59 U/L (30-118); CPK CREATINE PHOSPHOKINASE 44 U/L (34-145); MB/CK RELATIVE INDEX 2.27 (< OR =4)
[2024-05-22 10:43] LABS: ALBUMIN 4.3 G/DL (3.2-5.2); ALKALINE PHOSPHATASE 55 U/L (35-104); ALT/SGPT 59 U/L (7.0-40); AST/SGOT 28 U/L (<34); BILIRUBIN,DIRECT 0.2 MG/DL (<0.4); BILIRUBIN,TOTAL 0.7 MG/DL (0.3-1.2); BLOOD UREA NITROGEN 33 MG/DL (9-23); CALCIUM LEVEL 10.3 MG/DL (8.5-10.1); CARBON DIOXIDE LEVEL 27 MMOL/L (20-31); CHLORIDE LEVEL 97 MMOL/L (98-107); CREATININE FOR GFR 1.28 MG/DL (0.55-1.30); GLOMERULAR FILTRATION RATE 45.6 (>51); GLUCOSE, FASTING 162 MG/DL (60-100); POTASSIUM SERUM 4.2 MMOL/L (3.5-5.1); SODIUM LEVEL 136 MMOL/L (136-145); TOTAL PROTEIN 7.4 G/DL (5.7-8.2)
[2024-05-22 10:45] LABS: INR 2.49; PARTIAL THROMBOPLASTIN TIME 44.5 SECONDS (24.8-34.2); PROTHROMBIN TIME 26.9 SECONDS (12.5-14.5)
[2024-05-22 10:49] LABS: PROCALCITONIN 0.09 ng/ml
[2024-05-22 11:30] LABS: CK-MB VALUE MASS < 1.0 NG/ML (<3.6)
[2024-05-22 11:32] LABS: CPK CREATINE PHOSPHOKINASE < 15 U/L (34-145)
[2024-05-22 11:32] LABS: APPEARANCE, URINE HAZY (CLEAR); BACTERIA, URINE AUTO 1+ (NEGATIVE); BILIRUBIN, URINE AUTO NEGATIVE (NEGATIVE); BLOOD, URINE BLOOD NEGATIVE (NEGATIVE); COLOR, URINE YELLOW (YELLOW); GLUCOSE, URINE (UA) AUTO NEGATIVE (NEGATIVE); KETONE, URINE AUTO NEGATIVE (NEGATIVE); LEUKOCYTE ESTERASE, URINE AUTO NEGATIVE (NEGATIVE); MUCUS, URINE SMALL (NEGATIVE); NITRITE, URINE AUTO NEGATIVE (NEGATIVE); PROTEIN, URINE AUTO NEGATIVE (NEGATIVE); RBC, URINE AUTO 2 /HPF (0-3); SPECIFIC GRAVITY URINE AUTO 1.015 (1.002-1.035); SQUAMOUS EPITHELIAL CELL UR AU 1 /HPF (0-6); URIC ACID CRYSTALS SMALL; WBC, URINE AUTO 3 /HPF (0-3)
[2024-05-22] MEDS ORDERED: BUPR150T12 PO (13:14)
[2024-05-22] MEDS ORDERED: OMEP40CA5 PO (13:14)
[2024-05-22] MEDS ORDERED: HOME MED LIST COMPLETE! XX SCH (13:15)
[2024-05-22 13:30] VITALS: BP 108/60; TEMP 98.3; O2SAT 97
== END 2024-05-22 13:45 | disposition home or self-care (01) ==
LOC: M ED 09:18
DX: E86.0 Dehydration (principal); I45.81 Long QT syndrome; E11.9 Type 2 diabetes mellitus without complications; I10 Essential (primary) hypertension; F17.210 Nicotine dependence, cigarettes, uncomplicated; Z79.4 Long term (current) use of insulin; Z79.899 Other long term (current) drug therapy
CPT/HCPCS: 71045; 80047; 80048; 80076; 81001; 82150; 82550; 82553; 82803; 83605; 84145; 84484; 85025; 85610; 85730; 86140; 86850; 86900; 86901; 87040; 87086; 87486; 87581; 87633; 87798; 93005; 93041; 94760; 96361; 96365; 99285; J2543

== ENCOUNTER → 2025-01-26 | Outpatient (CLI) | payer BC ==
[~2025-01-26] MED LIST changes: +BUPR150T12 PO; +BUPR150T15 PO; -BUPR1TAB53 PO; +OMEP40CA5 PO; +SEMA0.257 INJ
[2025-01-26 09:15] LABS: BASO # 0.0 10^3/uL (0.0-0.2); BASO % 0.3 % (0.0-1.0); EOS # 0.2 10^3/uL (0.0-0.5); EOS % 2.8 % (0.0-3.0); LYMPH # 2.5 10^3/uL (1.5-5.0); LYMPH % 31.5 % (24.0-44.0); MONO # 0.7 10^3/uL (0.0-0.8); MONO % 9.2 % (2.0-8.0); NEUTROPHILS # 4.4 10^3/uL (1.5-8.5); NEUTROPHILS % 55.9 % (36.0-66.0); PLATELET COUNT, AUTOMATED 296 10^3/uL (150-450)
[2025-01-26 09:36] LABS: ALT/SGPT 39 U/L (7.0-40); AST/SGOT 32 U/L (<34); CALCIUM LEVEL 9.8 MG/DL (8.5-10.1); CARBON DIOXIDE LEVEL 31 MMOL/L (20-31); CHLORIDE LEVEL 101 MMOL/L (98-107); CHOLESTEROL LEVEL 176 MG/DL (<200); CHOLESTEROL RISK RATIO 3.18 (<5); CREATININE FOR GFR 0.69 MG/DL (0.55-1.30); GLOMERULAR FILTRATION RATE > 90.0 (>51); LDL CHOLESTEROL 103.0 MG/DL (<100); NON-HDL-C 120.8 MG/DL; POTASSIUM SERUM 4.0 MMOL/L (3.5-5.1); SODIUM LEVEL 143 MMOL/L (136-145); TRIGLYCERIDES LEVEL 89 MG/DL (<150)
[2025-01-26 10:00] LABS: ESTIMATED AVERAGE GLUCOSE 157.0 MG/DL (60-110)
== END ==
LOC: M LAB 07:20
DX: I10 Essential (primary) hypertension (principal); E78.5 Hyperlipidemia, unspecified; K21.9 Gastro-esophageal reflux disease without esophagitis; E11.9 Type 2 diabetes mellitus without complications